=== PATIENT | female | born 2000 | race Caucasian/White ===

== ENCOUNTER 2022-04-30 00:37 | Emergency (ER) | payer BC ==
[~2022-04-30] VITALS: Ht 167.6 cm; Wt 91.0 kg
== END 2022-04-30 06:10 | disposition home or self-care (01) ==
LOC: ED 00:37 → CCU 03:00 → ED 03:00
DX: U07.1 COVID-19 (principal); F10.129 Alcohol abuse with intoxication, unspecified; Y90.8 Blood alcohol level of 240 mg/100 ml or more; R09.02 Hypoxemia
CPT/HCPCS: 31500; 36415; 51702; 71045; 80053; 82803; 83735; 84703; 85025; 87502; 94002; 99284-25; C9113; C9803; G0480; J2405; J3010; J3480; J7030; J7120; U0003